=== PATIENT | female | born 1980 | race Caucasian/White ===

== ENCOUNTER 2018-12-12 14:44 | Emergency (ER) | payer BC ==
--- NOTE | 2018-12-12 15:04 | ER Document Report ---
ED Medical Screen (RME) - General Chief Complaint: Abnormal Lab Results Stated Complaint: ABNORMAL LABS Time Seen by Provider: 12/12/18 14:51 Primary Care Provider: MITCH CHEN MD [Primary Care Provider] - Follow up as needed Mode of Arrival: Ambulatory Information source: Patient Notes: 38-year-old female presents to the emergency department with reports of low H&H 6.2. Reports history of blood transfusion in the past. Denies anemia. Patient reports that she went to see her primary care provider because she felt really tired. They renea her labs and that is when it was noted that her H&H was low. Denies bloody stools. Denies vomiting. Reports history of gastric bypass. I have greeted and performed a rapid initial assessment of this patient. A comprehensive ED assessment and evaluation of the patient, analysis of test results and completion of the medical decision making process will be conducted by additional ED providers. Dictation of this chart was performed using voice recognition software; therefore, there may be some unintended grammatical errors. TRAVEL OUTSIDE OF THE [place] IN LAST 30 DAYS: No - Related Data Allergies/Adverse Reactions: No Known Allergies Allergy (Verified 12/12/18 14:46) Past Medical History - Social History Frequency of alcohol use: Rare Drug Abuse: None - Past Medical History Cardiac Medical History: Reports: Hx Hypertension GI Medical History: Reports: Hx Gastroesophageal Reflux Disease Past Surgical History: Reports: Hx Appendectomy - Immunizations Hx Diphtheria, Pertussis, Tetanus Vaccination: Yes Physical Exam - Vital signs Vitals: Temp Pulse Resp BP Pulse Ox 97.9 F 95 16 173/86 H 100 12/12/18 14:46 12/12/18 14:46 12/12/18 14:46 12/12/18 14:46 12/12/18 14:46 Course - Vital Signs Vital signs: Temp Pulse Resp BP Pulse Ox 97.9 F 95 16 173/86 H 100 12/12/18 14:46 12/12/18 14:46 12/12/18 14:46 12/12/18 14:46 12/12/18 14:46 Doctor's Discharge - Discharge Referrals: MITCH CHEN MD [Primary Care Provider] - Follow up as needed
[2018-12-12 15:46] LABS: HEMATOCRIT 24.1 % (36.0-47.0); MEAN CORPUSCULAR HEMOGLOBIN 14.3 pg (27.0-33.4); MEAN CORPUSCULAR HGB CONC 27.9 g/dL (32.0-36.0); PLATELET COUNT 339 10^3/uL (150-450); RED BLOOD COUNT 4.71 10^6/uL (3.72-5.28); WHITE BLOOD COUNT 8.2 10^3/uL (4.0-10.5)
[2018-12-12 15:50] LABS: HEMOGLOBIN 6.7 g/dL (12.0-15.5); MEAN CORPUSCULAR VOLUME 51 fl (80-97)
[2018-12-12 15:51] LABS: APPEARANCE,URINE SLIGHTLY-CLOUDY; BILIRUBIN,URINE NEGATIVE (NEGATIVE); COLOR,URINE YELLOW; GLUCOSE, URINE NEGATIVE (NEGATIVE); KETONES,URINE NEGATIVE (NEGATIVE); LEUKOCYTE ESTERASE,URINE TRACE (NEGATIVE); NITRITE,URINE NEGATIVE (NEGATIVE); PROTEIN,URINE NEGATIVE (NEGATIVE); URINE SPECIFIC GRAVITY 1.011; UROBILINOGEN,URINE NEGATIVE mg/dL (<2.0)
[2018-12-12 16:03] LABS: ABSOLUTE LYMPHOCYTES# (MANUAL) 3.5 10^3/uL (0.5-4.7); ABSOLUTE MONOCYTES # (MANUAL) 0.6 10^3/uL (0.1-1.4); ALBUMIN 4.6 g/dL (3.5-5.0); ALKALINE PHOSPHATASE 99 U/L (38-126); ANION GAP 12 (5-19); ASPARTATE AMINO TRANSFERASE 22 U/L (14-36); BASOPHILS % (MANUAL) 0 % (0-2); BILIRUBIN,DIRECT 0.1 mg/dL (0.0-0.4); BILIRUBIN,TOTAL 0.7 mg/dL (0.2-1.3); BLOOD UREA NITROGEN 14 mg/dL (7-20); CALCIUM 9.3 mg/dL (8.4-10.2); CARBON DIOXIDE 22 mmol/L (22-30); CHLORIDE 104 mmol/L (98-107); EOSINOPHILS % (MANUAL) 1 % (0-6); GLUCOSE 70 mg/dL (75-110); LYMPHOCYTES % (MANUAL) 43 % (13-45); MONOCYTES % (MANUAL) 7 % (3-13); POTASSIUM 4.6 mmol/L (3.6-5.0); SEGMENTED NEUTROPHILS % (MAN) 49 % (42-78); TOTAL CELLS COUNTED 100; TOTAL PROTEIN 7.4 g/dL (6.3-8.2)
[2018-12-12 16:05] LABS: ANISOCYTOSIS 2+; HYPOCHROMASIA 3+; OVALOCYTES SLIGHT; PLATELET COMMENT ADEQUATE; POIKILOCYTOSIS SLIGHT; POLYCHROMASIA SLIGHT
--- NOTE | 2018-12-12 17:34 | ER Document Report ---
ED General - General Chief Complaint: Abnormal Lab Results Stated Complaint: ABNORMAL LABS Time Seen by Provider: 12/12/18 14:51 Primary Care Provider: MITCH CHEN MD [NO LOCAL MD] - Follow up as needed Mode of Arrival: Ambulatory Notes: 38-year-old female presents emergency department stating that she was diagnosed with anemia [facility] and sent over here. Patient states that there her hemoglobin was 6.2. Patient admits a history of anemia in requiring 2 units of PRBCs to be transfused prior to her in July 2017. Patient states that her numbers were improving but then she switch from prenatals to women's One-A-Day multivitamin. Since then patient has been feeling increasingly fatigued. Denies any chest pain or shortness of breath on exertion, denies any dizziness. Denies any active blood loss. Denies any hematemesis, blood in her stool, melanotic stools or heavy vaginal bleeding. Uses less than 1 pad per hour. Has had a "full hematology panel" drawn at [facility] and has an appointment with hematology on January 02. Patient did have gastric bypass surgery 5 years ago. TRAVEL OUTSIDE OF THE [place] IN LAST 30 DAYS: No - Related Data Allergies/Adverse Reactions: No Known Allergies Allergy (Verified 12/12/18 14:46) Past Medical History - General Information source: Patient - Social History Smoking Status: Never Smoker Frequency of alcohol use: Rare Drug Abuse: None Family History: Reviewed & Not Pertinent Patient has suicidal ideation: No Patient has homicidal ideation: No - Past Medical History Cardiac Medical History: Reports: Hx Hypertension GI Medical History: Reports: Hx Gastroesophageal Reflux Disease Past Surgical History: Reports: Hx Appendectomy - Immunizations Hx Diphtheria, Pertussis, Tetanus Vaccination: Yes Review of Systems - Review of Systems Constitutional: See HPI, Weakness EENT: No symptoms reported Cardiovascular: No symptoms reported -: Yes All other systems reviewed and negative Physical Exam - Vital signs Vitals: Temp Pulse Resp BP Pulse Ox 97.9 F 95 16 173/86 H 100 12/12/18 14:46 12/12/18 14:46 12/12/18 14:46 12/12/18 14:46 12/12/18 14:46 Interpretation: Hypertensive - Notes Notes: GENERAL: Alert, interacts well. No acute distress. HEAD: Normocephalic, atraumatic EYES: Pupils equal, round and reactive to light, extraocular movements intact. ENT: Oral mucosa moist, tongue midline. NECK: Full range of motion, supple, trachea midline. LUNGS: Clear to auscultation bilaterally, no wheezes, rales or rhonchi, no respiratory distress. HEART: Regular rate and rhythm, no murmurs, gallops, rubs. ABDOMEN: Soft, nontender, nondistended, bowel sounds present in all 4 quadrants. EXTREMITIES: Moves all 4 extremities spontaneously, no edema, radial and dorsalis pedis pulses 2/4 bilaterally. No cyanosis. NEUROLOGICAL: Alert and oriented x3, normal speech. PSYCH: Normal mood, normal affect. SKIN: Warm, Dry, normal turgor, no rashes or lesions noted. Course - Re-evaluation Re-evalutation: 12/12/18 17:32 CBC shows anemia with hemoglobin 6.7, hematocrit is 24.1, white blood cells and platelets are normal, there is hypochromasia and microcytosis suggesting iron deficiency anemia. Knowing that the patient is also a gastric bypass surgery patient it is possible that she may be deficient in B12 as well. No schistocytes are noted. Chemistries unremarkable, urinalysis shows trace leukocyte esterase, 5 squamous epithelial cells, suspect this is contaminated. test is negative. Discussed with patient the risks and benefits of a blood transfusion discussed that a blood transfusion would likely make her feel immediately better but also discussed that there is some associated risks with blood transfusions including ARDS and TRALI. Discussed with patient that she does have an appointment on January 02 and as she is not hypotensive, tachycardic, actively bleeding or having any other indication that she will suffer harm from not having a blood transfusion right now patient is choosing not to have a blood transfusion at this time and instead to start iron with calcium and a stool softener and follow-up with hematology on the . Patient is aware that she may end up needing other medications. Patient is also aware that she can return at any time to have a blood transfusion. Patient will be discharged home. - Vital Signs Vital signs: Temp Pulse Resp BP Pulse Ox 97.9 F 95 16 173/86 H 100 12/12/18 14:46 12/12/18 14:46 12/12/18 14:46 12/12/18 14:46 12/12/18 14:46 - Laboratory Result Diagrams: 12/12/18 15:20 12/12/18 15:20 Laboratory results interpreted by me: 12/12/18 12/12/18 12/12/18 15:20 15:20 15:20 Hgb 6.7 L Hct 24.1 L MCV 51 L MCH 14.3 L MCHC 27.9 L RDW 20.0 H Glucose 70 L Ur Leukocyte Esterase TRACE H Discharge - Discharge Clinical Impression: Anemia Qualifiers: Anemia type: unspecified type Qualified Code(s): D64.9 - Anemia, unspecified Condition: Stable Disposition: HOME, SELF-CARE Additional Instructions: I suspect you have iron deficiency anemia. Because you had gastric bypass surgery it is also possible that you will need B12 injections. I recommend that she keep your follow-up appointment with hematology on January 02 as they will be able to give you a more exact course of treatment. At this time you have chosen not to receive a blood transfusion and instead start taking iron pills with vitamin C to increase their absorption. Iron can cause constipation so I have also written you for the generic equivalent of MiraLAX. All of these medications are available [id number]. If your insurance does not cover them or the co-pay is too expensive please feel free to buy them generically [id number]. If you develop vomiting blood, blood in your stool, dark black tarry stools, heavy vaginal bleeding or chest pain, shortness of breath or any new or concerning symptoms please return to the emergency department. You are also welcome to change your mind and return at any time to request a recheck of your blood count and possible blood transfusion. Prescriptions: Polyethylene Glycol 3350 [Gavilax] 17 gm PO DAILY #30 powd.pack Iron,Carbonyl/Ascorbic Acid [Iron 100-Vitamin C Tablet] 1 each PO DAILY #30 tabl et Referrals: MITCH CHEN MD [NO LOCAL MD] - Follow up as needed DHRUV BARRERA MD [Primary Care Provider] - Follow up as needed
[2018-12-12 17:55] VITALS: BP 155/79
[2018-12-15 12:43] LABS: PATH REVIEW PATHOLOGIST REVIEWED
== END 2018-12-12 18:15 | disposition home or self-care (01) ==
LOC: ER 14:44
DX: D64.9 Anemia, unspecified (principal); R53.83 Other fatigue; I10 Essential (primary) hypertension
CPT/HCPCS: 36415; 80053; 81001; 81025; 85025; 86850; 86900; 86901; 99283

== ENCOUNTER 2018-12-15 14:07 | Emergency (ER) | payer BC ==
--- NOTE | 2018-12-15 14:55 | ER Document Report ---
ED General - General Chief Complaint: Abnormal Lab Results Stated Complaint: ABNORMAL LABS Time Seen by Provider: 12/15/18 14:45 Primary Care Provider: DHRUV BARRERA MD [Primary Care Provider] - Follow up as needed TRAVEL OUTSIDE OF THE [place] IN LAST 30 DAYS: No - HPI Notes: Patient is a 38-year-old female presents emergency department for evaluation as a result of abnormal labs. She has a known history of anemia. Her hemoglobin was found to be just over 6 last week. She was sent to the ER for evaluation. They found her hemoglobin to be 6.7. Patient reports that the provider who saw her started her on supplements and did not order a transfusion. She states that now she just feels extremely poorly. She is feeling fatigued. She denies any chest pain or dyspnea with exertion. She denies any melena or hematochezia. She has been taking iron and sublingual B12 as instructed. She states she had Hemoccult performed on Saturday and this was found to be negative. - Related Data Allergies/Adverse Reactions: No Known Allergies Allergy (Verified 12/15/18 14:48) Home Medications: Sublingual vitamin B12, multivitamin, iron, patient unaware of doses. Past Medical History - General Information source: Patient - Social History Smoking Status: Never Smoker Chew tobacco use (# tins/day): No Frequency of alcohol use: None Drug Abuse: None Family History: Reviewed & Not Pertinent Patient has suicidal ideation: No Patient has homicidal ideation: No - Medical History Notes: Anemia GI Medical History: Reports: Hx Gastroesophageal Reflux Disease Past Surgical History: Reports: Hx Appendectomy, Hx Section, Hx Gastric Bypass Surgery - Immunizations Hx Diphtheria, Pertussis, Tetanus Vaccination: Yes Review of Systems - Review of Systems Constitutional: See HPI EENT: No symptoms reported Cardiovascular: No symptoms reported Respiratory: No symptoms reported Gastrointestinal: No symptoms reported Genitourinary: No symptoms reported Female Genitourinary: No symptoms reported Musculoskeletal: No symptoms reported Skin: No symptoms reported Hematologic/Lymphatic: See HPI, Anemia Neurological/Psychological: No symptoms reported Physical Exam - Vital signs Vitals: Temp Pulse Resp BP Pulse Ox 98.1 F 79 15 167/87 H 100 12/15/18 14:24 12/15/18 14:24 12/15/18 14:24 12/15/18 14:24 12/15/18 14:24 - Notes Notes: Vital signs reviewed, please refer to chart. Head is normocephalic, atraumatic. Pupils equal round, reactive to light. Neck is supple without meningismus. Heart is regular rate and rhythm. Lungs are clear to auscultation bilaterally. Abdomen is soft, nontender, normoactive bowel sounds throughout. Extremities without cyanosis, clubbing. Posterior calves are nontender. Peripheral pulses are equal. Skin is warm and dry. Patient is awake, alert, neurological exam is nonfocal. Course - Re-evaluation Re-evalutation: 12/15/18 14:54 Patient presents to the emergency department for evaluation. Laboratory investigations were ordered. Awaiting results to determine if transfusion necessary at this time. Type and screen ordered. 12/15/18 18:47 Patient's hemoglobin was significantly low, transfusion of 2 units of packed red cells was ordered. Actually spoke with Dr. Boland. He asked that iron studies be ordered on her blood pre-transfusion. These orders were placed and results obtained. It is a significant iron deficiency anemia. Dr. Boland asked that she contact his office for follow-up, they can set up iron infusions. This was explained to the patient. At this point she is receiving blood, awaiting formal discharge when she is received both units. Otherwise she is stable, and amenable to outpatient follow-up. - Vital Signs Vital signs: Temp Pulse Resp BP Pulse Ox 98.6 F 79 23 H 127/71 H 100 12/15/18 18:18 12/15/18 18:06 12/15/18 18:18 12/15/18 18:18 12/15/18 18:18 - Laboratory Result Diagrams: 12/15/18 15:05 12/15/18 15:05 Laboratory results interpreted by me: 12/15/18 12/15/18 12/15/18 15:05 15:05 15:05 Hgb 6.3 L Hct 22.4 L MCV 52 L MCH 14.5 L MCHC 28.0 L RDW 20.7 H Creatinine 0.51 L Iron 16.2 L Ferritin 3.89 L Vitamin B12 218.0 L Crossmatch 12/15/18 15:05 Hgb Hct MCV MCH MCHC RDW Creatinine Iron Ferritin Vitamin B12 Crossmatch See Detail Discharge - Discharge Clinical Impression: Iron deficiency anemia Qualifiers: Iron deficiency anemia type: unspecified iron deficiency Qualified Code(s): D50.9 - Iron deficiency anemia, unspecified Condition: Stable Disposition: HOME, SELF-CARE Instructions: Anemia, Iron Deficiency ([facility]) Additional Instructions: Follow-up with Dr. Boland. His office will attempt iron infusion appointments to help with your anemia. If you develop fevers, chest pain, difficulty breathing, or any other concerning symptoms of any sort, please return immediately to the emergency department for evaluation. Referrals: DHRUV BARRERA MD [Primary Care Provider] - Follow up as needed MARVIN BOLAND MD [ACTIVE STAFF] - Follow up as needed
[2018-12-15 15:34] LABS: ABSOLUTE BASOPHILS # (AUTO) 0.1 10^3/uL (0.0-0.2); ABSOLUTE EOSINOPHILS # (AUTO) 0.1 10^3/uL (0.0-0.6); ABSOLUTE LYMPHOCYTES (AUTO) 3.7 10^3/uL (0.5-4.7); ABSOLUTE MONOCYTES (AUTO) 0.6 10^3/uL (0.1-1.4); ABSOLUTE NEUT (AUTO) 4.2 10^3/uL (1.7-8.2); BASOPHILS % (AUTO) 1.6 % (0-2); EOSINOPHILS % (AUTO) 1.5 % (0-6); HEMATOCRIT 22.4 % (36.0-47.0); LYMPHOCYTES % (AUTO) 42.1 % (13-45); MEAN CORPUSCULAR HEMOGLOBIN 14.5 pg (27.0-33.4); MEAN CORPUSCULAR VOLUME 52 fl (80-97); MONOCYTES % (AUTO) 6.5 % (3-13); PLATELET COUNT 292 10^3/uL (150-450); RED BLOOD COUNT 4.33 10^6/uL (3.72-5.28); RED CELL DISTRIBUTION WIDTH 20.7 % (11.5-14.0); SEGMENTED NEUTROPHILS % (AUTO) 48.3 % (42-78); TOTAL CELLS COUNTED % (AUTO) 100 %; WHITE BLOOD COUNT 8.7 10^3/uL (4.0-10.5)
[2018-12-15 15:38] LABS: ALKALINE PHOSPHATASE 104 U/L (38-126); ANION GAP 9 (5-19); ASPARTATE AMINO TRANSFERASE 23 U/L (14-36); BILIRUBIN,DIRECT 0.1 mg/dL (0.0-0.4); BILIRUBIN,TOTAL 0.6 mg/dL (0.2-1.3); BLOOD UREA NITROGEN 10 mg/dL (7-20); CALCIUM 8.7 mg/dL (8.4-10.2); CARBON DIOXIDE 24 mmol/L (22-30); CHLORIDE 106 mmol/L (98-107); GLUCOSE 82 mg/dL (75-110); POTASSIUM 4.1 mmol/L (3.6-5.0); TOTAL PROTEIN 6.6 g/dL (6.3-8.2)
[2018-12-15] MEDS ORDERED: NORMAL SALINE 250 ML IV PRN (15:40)
[2018-12-15 15:52] LABS: ANISOCYTOSIS 2+; HYPOCHROMASIA 2+; OVALOCYTES SLIGHT; PLATELET COMMENT ADEQUATE; POIKILOCYTOSIS SLIGHT; POLYCHROMASIA SLIGHT
[2018-12-15 15:56] LABS: HEMOGLOBIN 6.3 g/dL (12.0-15.5)
[2018-12-15 15:57] LABS: ABSOLUTE RETICS # 0.109 10^6/uL (0.028-0.122)
[2018-12-15 16:11] LABS: IRON(TIBC) 16.2 ug/dL (37-170)
[2018-12-15 16:48] LABS: FERRITIN 3.89 ng/mL (6.2-137.0)
[2018-12-15 21:50] VITALS: BP 166/112
== END 2018-12-15 21:54 | disposition home or self-care (01) ==
LOC: ER 14:07
DX: D50.9 Iron deficiency anemia, unspecified (principal)
CPT/HCPCS: 99284; 86900; 86901; 36415; 36430; 86850; 82607; 82728; 82746; 83540; 83550; 85025; 85045; 80053; 86920; P9016